=== PATIENT | female | born 1955 | race Caucasian/White ===

== ENCOUNTER 2020-07-19 06:53 | Day surgery (SDC) | payer OTHER, BC ==
[~2020-07-19 06:53] MED LIST: Lactated Ringers 1,000 ML IV SCH
[2020-07-19] MEDS ORDERED: Midazolam 1 MG/ML 2 ML SDV ONE (07:03)
[2020-07-19] MEDS ORDERED: Ondansetron 4 MG/2 ML SDV ONE (07:03)
[2020-07-19] MEDS ORDERED: Lidocaine 2% 5 ML SDV ONE (07:03)
[2020-07-19] MEDS ORDERED: fentaNYL 250 MCG/5 ML SDV ONE (07:03)
[2020-07-19] MEDS ORDERED: Glycopyrrolate 0.2 MG/ML SDV ONE ×2 (07:03→07:53)
[2020-07-19] MEDS ORDERED: Propofol 200 MG/20 ML SDV ONE (07:03)
[2020-07-19] MEDS ORDERED: Ketorolac 30 MG/ML SDV ONE (07:04)
[2020-07-19] MEDS ORDERED: Rocuronium Bromide 50 MG/5 ML Syringe ONE (07:04)
[2020-07-19] MEDS ORDERED: Bupivacaine 0.5% 30 ML SDV ONE (07:13)
[2020-07-19] MEDS ORDERED: Dexamethasone 4 MG/ML 5 ML MDV ONE (07:13)
--- NOTE | 2020-07-19 07:38 | PCM.PREANE ---
Preanesthetic Assessment - Anesthesia/Transfusion/Family Hx Anesthesia History: Prior Anesthesia Without Reaction Family History of Anesthesia Reaction: No Transfusion History: No Prior Transfusion(s) - Review of Systems General: No Symptoms Pulmonary: No Symptoms Cardiovascular: No Symptoms Gastrointestinal: No Symptoms Neurological: No Symptoms Other: Reports: Anxiety - Physical Assessment NPO Status Date: 07/18/20 Height: 5 ft 10 in Weight: 102.058 kg ASA Class: 2 Mental Status: Alert & Oriented x3 Airway Class: Mallampati = 2 Dentition: Reports: Normal Dentition ROM/Head Extension: Full Lungs: Clear to Auscultation, Normal Respiratory Effort Cardiovascular: Regular Rate, Regular Rhythm - Allergies Allergies/Adverse Reactions: Allergies Allergy/AdvReac Type Severity Reaction Status Date / Time No Known Allergies Allergy Verified 07/14/20 10:09 - Blood Blood Available: No - Anesthesia Plan Pre-Op Medication Ordered: None - Acknowledgements Anesthesia Type Planned: General Anesthesia Pt an Appropriate Candidate for the Planned Anesthesia: Yes Alternatives and Risks of Anesthesia Discussed w Pt/Guardian: Yes Pt/Guardian Understands and Agrees with Anesthesia Plan: Yes Additional Comments: PMH: anxiety PLAN: get, with [facility] for post op pain management PreAnesthesia Questionnaire HEENT History: Reports: Impaired Vision Other HEENT History: wears glasses, has full upper dentures and lower partial plate and lower dental implant Cardiovascular History: Reports: None Respiratory History: Reports: None Gastrointestinal History: Reports: None Genitourinary History: Reports: None [employer] History: Reports: Musculoskeletal History: Reports: Arthritis, Fracture Other Musculoskeletal History: states has arthritis of left shoulder and has fractured achilles tendon in the past Neurological History: Reports: None Psychiatric History: Reports: None Endocrine/Metabolic History: Reports: Obesity/BMI 30+ Hematologic History: Reports: None Immunologic History: Reports: None Oncologic (Cancer) History: Reports: None Dermatologic History: Reports: None - Infectious Disease History Infectious Disease History: - Past Surgical History Head Surgeries/Procedures: Reports: None HEENT Surgical History: Other HEENT Surgeries/Procedures: has lower dental implant Cardiovascular Surgical History: Reports: None GI Surgical History: Reports: None Female Surgical History: Reports: Hysterectomy, Oophorectomy Other Female Surgeries/Procedures: rectocele\cystocele repair Endocrine Surgical History: Reports: None Musculoskeletal Surgical History: Reports: None - SUBSTANCE USE Tobacco Use Status *Q: Never Tobacco User - HOME MEDS Home Medications: Home Meds Diclofenac Sodium 1 applic TOP ASDIRECTED PRN 07/14/20 [History] - CURRENT (IN HOUSE) MEDS Current Meds: Current Medications Lactated Ringer's (Ringers, Lactated) 1,000 mls @ 100 mls/hr IV ASDIRECTED BLAIR Cefazolin Sodium/Dextrose 2 gm (/ Premix) 50 mls @ 100 mls/hr IV ONCALL BLAIR Discontinued Medications Bupivacaine HCl (Marcaine 0.5%) Confirm Administered Dose 30 ml .ROUTE .STK-MED ONE Stop: 07/19/20 07:14 Dexamethasone (Dexamethasone) Confirm Administered Dose 20 mg .ROUTE .STK-MED ONE Stop: 07/19/20 07:14 Fentanyl (Sublimaze) Confirm Administered Dose 250 mcg .ROUTE .STK-MED ONE Stop: 07/19/20 07:04 Glycopyrrolate (Robinul) Confirm Administered Dose 0.4 mg .ROUTE .STK-MED ONE Stop: 07/19/20 07:04 Ketorolac Tromethamine (Toradol) Confirm Administered Dose 30 mg .ROUTE .STK-MED ONE Stop: 07/19/20 07:05 Lidocaine (Xylocaine-Mpf 2%) Confirm Administered Dose 5 ml .ROUTE .STK-MED ONE Stop: 07/19/20 07:04 Lidocaine HCl (Xylocaine-Mpf 1%) Confirm Administered Dose 5 ml .ROUTE .STK-MED ONE Stop: 07/19/20 07:14 Midazolam HCl (Versed 1 Mg/Ml) Confirm Administered Dose 2 mg .ROUTE .STK-MED ONE Stop: 07/19/20 07:04 Ondansetron HCl (Zofran) Confirm Administered Dose 4 mg .ROUTE .STK-MED ONE Stop: 07/19/20 07:04 Propofol (Diprivan 20 Ml) Confirm Administered Dose 200 mg .ROUTE .STK-MED ONE Stop: 07/19/20 07:04 Rocuronium Murphys (Rocuronium Murphys) Confirm Administered Dose 50 mg .ROUTE .STK-MED ONE Stop: 07/19/20 07:05
--- NOTE | 2020-07-19 07:43 | PCM.SN.2 ---
- Free Text/Narrative Note: Procedure Note, Interscalene block placement. consent obtained, full monitoring time out sedation with versed 2 mg and fentanyl 50 mcg skin prep with ChloraPrep skin wheel with 1% lido twitch at 1.0 extinguished at 30 ml of 0.5% bupivacaine with of 8 mg of dexamethasone, administered in 5 ml aliquots with 60 sec intervals between aliquots Tolerated well No complications
[2020-07-19] MEDS ORDERED: ceFAZolin 2 GM in Premix Bag 1 BAG IV SCH (08:00)
[2020-07-19] MEDS ORDERED: ePHEDrine 50 MG/ML SDV ONE (08:02)
[2020-07-19] MEDS ORDERED: Sodium Chloride 0.9% 20 ML ONE (08:10)
[2020-07-19] MEDS ORDERED: ceFAZolin 1 GM Vial ONE (08:10)
[2020-07-19] MEDS ORDERED: Phenylephrine 1% 10 MG/ML SDV ONE (08:16)
[2020-07-19] MEDS ORDERED: EPINEPHrine 1:10,000 1 MG/10 ML Syringe IVPUSH PRN (09:15)
[2020-07-19] MEDS ORDERED: Atropine 0.1 MG/ML 10 ML Syringe IVPUSH PRN ×2 (09:15)
[2020-07-19] MEDS ORDERED: Naloxone 0.4 MG/ML Syringe IVPUSH PRN (09:15)
[2020-07-19] MEDS ORDERED: 50% Dextrose in Water 50 ML Syringe IVPUSH PRN (09:15)
[2020-07-19] MEDS ORDERED: Albuterol 0.083% 2.5 MG/3 ML Neb Soln NEB PRN (09:15)
[2020-07-19] MEDS ORDERED: fentaNYL 100 MCG/2 ML SDV IVPUSH PRN (09:15)
--- NOTE | 2020-07-19 09:46 | PCM.OPNOTE ---
- General Post-Op/Procedure Note Date of Surgery/Procedure: 07/19/20 Operative Procedure(s): (1) left shoulder open rotator cuff repair and open acromioplasty. (2) left shoulder open distal clavicle excision. (3) left shoulder open biceps tendon tenodesis Findings: Left shoulder moderate supraspinatus rotator cuff tear 1.5 cm x 3 cm Left shoulder acromioclavicular joint arthrosis Left shoulder biceps tendon degeneration with severe flattening Pre Op Diagnosis: (1) left shoulder full-thickness supraspinatus rotator cuff tear. (2) left shoulder acromioclavicular joint arthrosis Post-Op Diagnosis: (1) left shoulder full-thickness supraspinatus rotator cuff tear. (2) left shoulder acromioclavicular joint arthrosis. (3) left shoulder severe biceps tendon degeneration with flattening Anesthesia Technique: General ET Tube, Regional Block Primary Surgeon: Mickey Zavala Secondary Surgeon: Louis Suarez Panel Beater: Marcia Urrutia Panel Beater Was Necessary: Arm positioning and retraction. 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 She has a documented full- thickness rotator cuff tear of the supraspinatus in the left shoulder as well as acromioclavicular joint arthrosis. She had failed nonoperative management including extensive physical therapy. We discussed the risks and benefits of surgery for open rotator cuff repair and open acromioplasty as well as an open distal clavicle excision for the acromioclavicular joint arthrosis. All questions were answered. Patient consented to proceed with surgery. The for going to the room a regional block was placed. Patient was taken to the operating room. After adequate general anesthesia she remained in a supine position and the table was switched to a beachchair position. The left shoulder and upper extremity were prepped and draped in usual sterile manner. An oblique incision was made extending from the distal clavicle to the anterolateral corner of the acromion and down over the deltoid. Skin was incised with a scalpel. Subcutaneous tissue was incised with electrocautery. The corticoacromial ligament was taken down subperiosteally off the anterior acromion and the deltoid split extended through the anterior raphae. The acromioplasty was performed with an oscillating saw taking an anterior cut and an inferior cut and adequately decompressing the subacromial space. A moderate sized supraspinatus tear was identified. The biceps tendon was visualized in the tear and noted to be very degenerative and flattened so it was elected to proceed with a biceps tenodesis to reduce the likelihood of ongoing shoulder pain after the rotator cuff repair. Retraction suture was placed into the biceps tendon. The tendon was then cut from the anchor of the superior labrum with a curved Elena scissors. The tendon was then retracted superiorly and a soft tissue tenodesis was done with #2 FiberWire through the tendon and the fascia over the tendon with multiple suture throws. The edges of the rotator cuff tendon were debrided with a scalpel. The greater tuberosity was prepared to a bleeding bed over the tendon attachment footprint with a rongeur. A retraction suture was placed in the rotator cuff tendon and pulled the rotator cuff tendon laterally. A side to side suture repair was performed through the anterior edge of the supraspinatus to the subscapularis to close the interval and do margin convergence. Then towel clamps were used to make 2 bone tunnels and 2 Jerome-Saad sutures with #2 FiberWire were used to repair the supraspinatus back to the greater tuberosity. An additional side to side [id number] suture was used to make a watertight closure. The dissection was carried medial centered over the distal clavicle. The AC capsule and periosteum were elevated anteriorly and posteriorly exposing the distal clavicle. An oscillating saw was used to excise the distal clavicle going obliquely anterolateral to posterior medial and superior lateral to inferior medial. The edge was smoothed with a rongeur. Adequate decompression was confirmed by palpating the distal clavicle. Wounds were irrigated. The deltoid was repaired back to the acromion with 2 [id number] #5 Ethibond sutures. The deltoid raphae split was repaired with interrupted #1 Vicryl suture. The capsule and periosteum over the acromioclavicular joint was repaired with interrupted #1 Vicryl sutures. Subcutaneous tissue was closed with interrupted 2-0 Vicryl suture and then running subcuticular Monocryl for final skin closure. Sterile dressing was applied and patient was placed in a sling and accompanied the recovery in stable condition. Pain management: Ibuprofen, acetaminophen, oxycodone. Venous thromboembolism prophylaxis: Not indicated for upper extremity soft tissue procedure. Prophylactic antibiotics: Postoperative dosing not indicated for outpatient procedure. Restrictions: Patient is to use a sling for 6 weeks and do pendulum exercises only for the first 6 weeks. From 6 weeks to 3 months the sling can be discontinued and patient can begin active range of motion but no lifting greater than 1 pound and no rotator cuff strengthening. At 3 months the patient should begin rotator cuff strengthening exercises.
--- NOTE | 2020-07-19 12:12 | PCM.POSTAN ---
POST ANESTHESIA ASSESSMENT - MENTAL STATUS Mental Status: Alert, Oriented - VITAL SIGNS Vital Signs: Last Vital Signs Temp 98.6 F 07/19/20 09:42 Pulse 81 07/19/20 10:17 Resp 15 07/19/20 10:17 BP 126/54 L 07/19/20 10:17 Pulse Ox 93 L 07/19/20 10:17 - RESPIRATORY Respiratory Status: Respiratory Rate WNL, Airway Patent, O2 Saturation Stable - CARDIOVASCULAR CV Status: Pulse Rate WNL, Blood Pressure Stable - GASTROINTESTINAL GI Status: No Symptoms - POST OP HYDRATION Hydration Status: Adequate & Stable
--- NOTE | 2020-07-19 12:13 | PCM48HPAN ---
Post Anesthesia Note - EVALUATION WITHIN 48HRS OF ANESTHETIC Vital Signs in Normal Range: Yes Patient Participated in Evaluation: Yes Respiratory Function Stable: Yes Airway Patent: Yes Cardiovascular Function Stable: Yes Hydration Status Stable: Yes Pain Control Satisfactory: Yes Nausea and Vomiting Control Satisfactory: Yes Mental Status Recovered: Yes Vital Signs: Last Vital Signs Temp 98.6 F 07/19/20 09:42 Pulse 81 07/19/20 10:17 Resp 15 07/19/20 10:17 BP 126/54 L 07/19/20 10:17 Pulse Ox 93 L 07/19/20 10:17
== END 2020-07-19 12:40 | disposition home or self-care (01) ==
LOC: MW.SDS 06:53
PROVIDERS: ATTEND Orthopaedic Surgery
DX: S46.012A Strain of muscle(s) and tendon(s) of the rotator cuff of left shoulder, initial encounter (principal); M19.012 Primary osteoarthritis, left shoulder; M67.814 Other specified disorders of tendon, left shoulder; E66.9 Obesity, unspecified; Z87.891 Personal history of nicotine dependence; X58.XXXA Exposure to other specified factors, initial encounter; Y99.0 Civilian activity done for income or pay; Z68.32 Body mass index [BMI] 32.0-32.9, adult
CPT/HCPCS: 23120; 23410; 23430; J0690; J1100; J1885; J2001; J2250; J2370; J2405; J2704; J3010; J3490